=== PATIENT | female | born 1980 | race Two or more races ===

== ENCOUNTER 2020-08-20 21:01 | Emergency (ER) | payer BC, MEDICAID ==
[~2020-08-20] VITALS: Ht 152.4 cm; Wt 104.3 kg
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
[2020-08-20 21:21] VITALS: BP 117/75
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
[2020-08-20] MEDS ORDERED: Tetanus/Diptheria/Pertussis IM ONE (21:30)
[2020-08-20] MEDS ORDERED: Cephalexin 250mg/5ml Susp 100mL Bottle ORAL ONE (21:30)
[2020-08-20] MEDS ORDERED: Acetaminophen 500mg (ES) tab ORAL ONE (21:30)
[2020-08-20] MEDS ORDERED: Cephalexin 500mg cap ONE (21:32)
[2020-08-20] MEDS ORDERED: CEPHALEXIN500 MG ORAL (21:35)
[2020-08-20] MEDS ORDERED: BACITRACIN ZINC TP (21:35)
[2020-08-20] MEDS ORDERED: TYLENOL EXTRA500 MG ORAL (21:35)
[2020-08-20 21:40] VITALS: BP 117/75
--- NOTE | 2020-08-20 21:40 | NUR ---
ER DISCHARGE NOTE: Patient is cleared to be discharged per ERMD, pt is aox4, on room air, with stable vital signs. pt was given dc and prescription instructions, pt was able to verbalize understanding, pt id band removed without complications. pt is able to ambulate with steady gait. pt took all belongings.
[2020-08-20] MEDS ORDERED: Cephalexin 500mg cap ORAL ONE (21:45)
== END 2020-08-20 21:40 | disposition home or self-care (01) ==
LOC: EMR 21:20
DX: T22.212A Burn of second degree of left forearm, initial encounter (principal); T31.0 Burns involving less than 10% of body surface; X13.1XXA Other contact with steam and other hot vapors, initial encounter; Y93.G3 Activity, cooking and baking; Y92.000 Kitchen of unspecified non-institutional (private) residence as the place of occurrence of the external cause; Z23 Encounter for immunization
CPT/HCPCS: 90471; 90715; Z7502; 99283